=== PATIENT | female | born 1985 | race African-American/Black ===

== ENCOUNTER 2016-12-21 03:42 | Inpatient (IN) | payer MEDICAID ==
[~2016-12-21] VITALS: Ht 167.6 cm; Wt 88.5 kg
[2016-12-21] MEDS ORDERED: LIDOCAINE HCL 1% 20ML VIAL (Pyxis) INJ INFIL SCH (04:30)
[2016-12-21] MEDS ORDERED: NALOXONE HCL 0.4 MG/ML 1ML VIAL IM PRN (04:30)
[2016-12-21] MEDS ORDERED: CARBOPROST TROMETHAMINE 250 MCG/ML AMPUL IM PRN (04:30)
[2016-12-21] MEDS ORDERED: BUTORPHANOL TARTRATE 2 MG/ML VIAL IV PRN (04:30)
[2016-12-21] MEDS ORDERED: PENICILLIN G POTASSIUM 5 MMU in DEXT 5% WATER 100 ML IV NR (05:00)
[2016-12-21 05:05] LABS: BASOPHILS % 0.2 % (0.0-2.0); EOSINOPHILS % 0.5 % (0.0-5.0); HEMATOCRIT. 28.1 % (36.0-48.0); HEMOGLOBIN. 9.9 g/dL (12.0-16.0); LYMPHOCYTES % 27.5 % (20.0-50.0); MEAN PLATELET VOLUME 6.8 fl (7.4-10.4); MONOCYTES % 6.6 % (2.0-8.0); NEUTROPHILS % 65.2 % (40.0-76.0); PLATELET 309 x1000/uL (130-400); RED CELL DISTRIBUTION WIDTH 13.3 % (11.6-14.6)
[2016-12-21] MEDS: LACTATED RINGERS 1,000 ML IV SCH ×2 (05:16→14:26)
[2016-12-21 05:34] LABS: CARBON DIOXIDE 25 mEq/L (21-32); CHLORIDE 105 mEq/L (98-107)
[2016-12-21] MEDS ORDERED: DEXT 5%/0.45% NACL KCL 40MEQ/L 1,000 ML IV SCH (07:00)
[2016-12-21 07:05] LABS: CLARITY URINE CLOUDY (CLEAR); COLOR URINE YELLOW (YELLOW); GLUCOSE URINE NEGATIVE (NEGATIVE); KETONES URINE NEGATIVE (NEGATIVE); LEUKOCYTE ESTERASE URINE NEGATIVE (NEGATIVE); NITRITE URINE NEGATIVE (NEGATIVE); OCCULT BLOOD URINE NEGATIVE (NEGATIVE); PROTEIN URINE NEGATIVE (NEGATIVE); SPECIFIC GRAVITY URINE 1.006 (1.005-1.030); UROBILINOGEN URINE 0.2 E.U./dL (0.2-1.0)
[2016-12-21 07:32] LABS: *BARBITURATES SCREEN URINE NEGATIVE (NEGATIVE); *BENZODIAZEPINES SCREEN URINE NEGATIVE (NEGATIVE); *COCAINE SCREEN URINE NEGATIVE (NEGATIVE); CANNABINOID URINE SCREEN NEGATIVE (NEGATIVE); METHADONE URINE SCREEN NEGATIVE (NEGATIVE); OPIATES URINE SCREEN NEGATIVE (NEGATIVE); PHENCYCLIDINE URINE SCREEN NEGATIVE (NEGATIVE)
[2016-12-21] MEDS ORDERED: BUPIVACAINE HCL/NS/PF EPIDURAL 100 ML EP ONE (07:42)
[2016-12-21] MEDS ORDERED: FENTANYL CITRATE/PF 50MCG/ML 2ML VIAL ONE (07:42)
[2016-12-21] MEDS ORDERED: BUPIVACAINE HCL/PF 0.25% (2.5MG/ML) 10ML ONE (07:42)
[2016-12-21 07:56] LABS: PARTIAL THROMBOPLASTIN TIME 24.7 sec (23.4-31.0); PROTHROMBIN TIME 10.7 sec (9.4-11.6)
[2016-12-21 07:59] LABS: *AMPHETAMINES SCREEN URINE PRESUMTIVE POSITIVE (NEGATIVE)
[2016-12-21 08:04] LABS: HEPATITIS B SURFACE ANTIGEN NEGATIVE; RUBELLA IGG 11.3 IU/mL (4.99-10)
[2016-12-21] MEDS: PENICILLIN G POTASSIUM 2.5 MMU in DEXTROSE 5% WATER 50 ML IV SCH ×2 (09:21→12:57)
[2016-12-21] MEDS: DEXT 5%/LR + PITOCIN 20UNITS/L 1,000 ML IV SCH ×2 (09:21→16:31)
[2016-12-21] MEDS ORDERED: BUPIVACAINE HCL/NS/PF EPIDURAL 100 ML EP SCH (10:00)
[2016-12-21] MEDS ORDERED: ONDANSETRON HCL 4MG/2ML VIAL IV PRN (10:00)
[2016-12-21] MEDS ORDERED: LIDOCAINE HCL/PF 2% 20MG/ML 5 ML/VIAL ONE (13:17)
[2016-12-21] MEDS ORDERED: DEXT 5%/LR + PITOCIN 20UNITS/L 1,000 ML IV SCH (15:36)
[2016-12-21] MEDS ORDERED: BISACODYL 10MG SUPP PR PRN (15:45)
[2016-12-21] MEDS ORDERED: GLYCERIN/WITCH HAZEL LEAF MEDICATED PAD TOP PRN (15:45)
[2016-12-21] MEDS ORDERED: LANOLIN OINT 0.25 GM TUBE TOP PRN (15:45)
[2016-12-21] MEDS ORDERED: DIPHENHYDRAMINE 25MG CAPSULE PO PRN (15:45)
[2016-12-21] MEDS ORDERED: ACETAMINOPHEN WITH CODEINE 300/30MG TABLET PO PRN (15:45)
[2016-12-21] MEDS ORDERED: HEMORRHOIDAL SUPP PR PRN (15:45)
[2016-12-21] MEDS ORDERED: RHO(D) IMMUNE GLOBULIN 300 MCG/SYR IM PRN (15:45)
[2016-12-21] MEDS ORDERED: BENZOCAINE/LANOLIN/ALOE VERA SPRAY TOP PRN (15:45)
[2016-12-21] MEDS ORDERED: TETANUS, DIPHTHERIA, PERTUSSIS VAC/PF 0.5ML (>7YR OLD) IM ONE (15:45)
[2016-12-21 17:00] VITALS: BP 130/78
[2016-12-21 17:46] VITALS: BP 106/56
[2016-12-21] MEDS: IBUPROFEN 400MG TABLET PO PRN (19:57)
[2016-12-21] MEDS: ACETAMINOPHEN WITH CODEINE 300/30MG TABLET PO PRN (19:58)
[2016-12-21] MEDS: DOCUSATE SODIUM 100MG CAPSULE PO SCH (20:00)
[2016-12-21] MEDS: SIMETHICONE 80MG TABLET CHEW PO SCH (20:01)
[2016-12-22] MEDS: IBUPROFEN 400MG TABLET PO PRN (06:23)
[2016-12-22 07:21] LABS: BASOPHILS % 0.3 % (0.0-2.0); EOSINOPHILS % 0.9 % (0.0-5.0); HEMATOCRIT. 28.4 % (36.0-48.0); HEMOGLOBIN. 9.8 g/dL (12.0-16.0); LYMPHOCYTES % 29.8 % (20.0-50.0); MEAN CORPUSCULAR HEMOGLOBIN 29.9 pg (28.0-32.0); MEAN CORPUSCULAR VOLUME 86.7 fL (81.0-99.0); MEAN PLATELET VOLUME 6.6 fl (7.4-10.4); MONOCYTES % 7.3 % (2.0-8.0); NEUTROPHILS % 61.7 % (40.0-76.0); PLATELET 306 x1000/uL (130-400); RED BLOOD CELL COUNT 3.28 mill/uL (4.2-5.4); RED CELL DISTRIBUTION WIDTH 12.9 % (11.6-14.6)
[2016-12-22 07:35] VITALS: BP 109/73
[2016-12-22] MEDS: PRENATAL VIT/FE FUMARATE/FA TABLET PO SCH (08:35)
[2016-12-22] MEDS: SIMETHICONE 80MG TABLET CHEW PO SCH ×4 (08:35→22:00)
[2016-12-22] MEDS: FERROUS SULFATE 325MG TABLET PO SCH ×2 (13:00→18:37)
[2016-12-22 17:15] VITALS: BP 115/80
[2016-12-22 20:00] VITALS: BP 107/63
[2016-12-22] MEDS ORDERED: MEDROXYPROGESTERONE ACETATE 150MG/ML VIAL IM NR (21:30)
[2016-12-22] MEDS: DOCUSATE SODIUM 100MG CAPSULE PO SCH (22:00)
[2016-12-23] VITALS: BP 110/70
[2016-12-23 07:52] VITALS: BP 114/76
[2016-12-23] MEDS: SIMETHICONE 80MG TABLET CHEW PO SCH (08:37)
[2016-12-23] MEDS: ACETAMINOPHEN WITH CODEINE 300/30MG TABLET PO PRN (08:38)
[2016-12-23] MEDS: PRENATAL VIT/FE FUMARATE/FA TABLET PO SCH (08:38)
[2016-12-23] MEDS: FERROUS SULFATE 325MG TABLET PO SCH (08:38)
[2016-12-27 04:17] LABS: AMPHETAMINE CONF URINE Positive (.)
== END 2016-12-23 11:20 | disposition home or self-care (01) | DRG 560 ==
LOC: L&D 03:42 → OBSVTOIN 03:42 → L&D 07:57 → 7EST PP/OB 17:09
PROVIDERS: ADMIT Specialist; ATTEND Specialist
PROC: 3E0S3CZ (ICD-10-PCS; 2016-12-21)
PROC: 00HU33Z Insertion of Infusion Device into Spinal Canal, Percutaneous Approach (ICD-10-PCS; 2016-12-21)
PROC: 10E0XZZ Delivery of Products of Conception, External Approach (ICD-10-PCS; principal; 2016-12-21 15:13)
DX: O77.0 Labor and delivery complicated by meconium in amniotic fluid (principal); O99.323 Drug use complicating pregnancy, third trimester; E87.6 Hypokalemia; Z37.0 Single live birth; D64.9 Anemia, unspecified; O69.81X0 Labor and delivery complicated by cord around neck, without compression, not applicable or unspecified; O99.02 Anemia complicating childbirth; O99.284 Endocrine, nutritional and metabolic diseases complicating childbirth; Z3A.37 37 weeks gestation of pregnancy
CPT/HCPCS: 36415; 80051; 80053; 80305; 80307; 81001; 85025; 85610; 85730; 86703; 86762; 86850; 86900; 87340; 90715; 99281; J0595; J1050; J2540; J2590; J3010; J3490; J7060; J7120; A4315